=== PATIENT | female | born 1995 | race Caucasian/White ===

== ENCOUNTER 2022-11-10 10:16 | Outpatient (REF) | payer MEDICAID, OTHER, SELFPAY ==
[2022-11-10 14:18] LABS: MANUAL DIFF FLAG NO
[2022-11-10 14:35] LABS: Basophils Percent Auto 0.4 % (0-2); Eosinophils Absolute Auto 0.1 X10*3/uL (0.0-0.4); Hematocrit 39.7 % (37.0-47.0); Imm Gran Abs Auto 0.01 X10*3/uL (0.00-0.03); Imm Gran Pct Auto 0.1 % (0.0-0.4); Lymphocytes Absolute Auto 1.9 X10*3/uL (1.2-4.9); Lymphocytes Percent Auto 26.4 % (20-40); Mean Corpuscular HGB Conc 32.7 g/dl (31.0-35.0); Mean Corpuscular Volume 88.4 fL (80.0-98.0); Mean Platelet Volume 10.6 fL (9.4-12.3); Monocytes Absolute Auto 0.4 X10*3/uL (0.1-1.2); Monocytes Percent Auto 5.3 % (2-11); Neutrophils Absolute Auto 4.7 x10*3/uL (2.0-8.3); Neutrophils Percent Auto 66.8 % (45-73); Platelet Count 305 X10*3/uL (160-400); Red Blood Count 4.49 X10*6/uL (4.20-5.50); Red Cell Distribution Width 13.1 % (11.0-16.0)
[2022-11-10 14:40] LABS: Estimated Average Glucose 94 mg/dL; Hemoglobin A1c % 4.9 %
[2022-11-10 15:39] LABS: Alanine Aminotransferase 38 U/L (0-31); Alkaline Phosphatase 84 U/L (39-117); Anion Gap 11 (12-20); Aspartate Amino Transferase 24 U/L (5-31); Bilirubin Total 0.3 mg/dL (0.0-1.0); Blood Urea Nitrogen 10 mg/dL (9-16); Calcium 8.9 mg/dL (8.4-10.2); Carbon Dioxide 23 mmol/L (22-29); Chloride 110 mmol/L (96-108); Estimated Glomerular Filt Rate > 60; Glucose Fasting 88 mg/dL (60-99); Potassium 4.2 mmol/L (3.3-5.1); Sodium 140 mmol/L (135-145); Total Protein 7.7 g/dL (6.5-8.0)
[2022-11-10 15:42] LABS: TSH reflex Free T4 2.19 uIU/mL (0.32-4.0); Vitamin D 25-OH Total 10.5 ng/mL (>30)
[2022-11-10 15:46] LABS: Vitamin B12 275 pg/mL (200-900)
== END 2022-11-10 10:17 | disposition home or self-care (01) ==
LOC: HO.CHCLDS 10:16
PROVIDERS: Visit Provider General Practice
DX: R53.83 Other fatigue (principal)
CPT/HCPCS: 36415; 80053; 82306; 82607; 83036; 84443; 85025

== ENCOUNTER 2024-01-23 10:49 | Outpatient (REF) | payer MEDICAID, OTHER, SELFPAY ==
[2024-01-23 14:35] LABS: Vitamin D 25-OH Total 23.8 ng/mL (>30)
[2024-01-23 14:54] LABS: Folate 7.9 ng/mL (> or = 4.0); Vitamin B12 285 pg/mL (200-900)
[2024-01-24 21:53] LABS: Prolactin 12.4 ng/mL
== END 2024-01-23 10:50 | disposition home or self-care (01) ==
LOC: HO.HHCL 10:49
PROVIDERS: Visit Provider Nurse Practitioner
DX: R79.89 Other specified abnormal findings of blood chemistry (principal); E53.8 Deficiency of other specified B group vitamins; E55.9 Vitamin D deficiency, unspecified
CPT/HCPCS: 36415; 82306; 82607; 82746; 84146

== ENCOUNTER 2024-05-02 16:37 | Outpatient (REF) | payer MEDICAID, SELFPAY ==
--- OUTSIDE RECORDS SUMMARY | 2024-05-02 16:44 | XMS_ITS | Encounter Summary ---
Author Organization [employer] Address [address] [facility] 7t [place] [address] Care Team Providers Care Police Dispatcher Name Role Phone Sophie Borjas PATIENT RELATIONS LIAISON Primary Care Provider [phone] Reason for Visit * Reason Comments Med Refill Encounter Details Date Type Department Care Team ([facility] st Contact Info) Description 04/27/2024 Refill [facility] [address] [place] [address] Sophie Borjas NP [address] [place] [address] Social History Tobacco Use Types Packs/Day Years Used Date Smoking Tobacco: Never Passive Smoke Exposure: Never Smokeless Tobacco: Never Alcohol Use Standard Drinks/Week Comments Never 0 (1 standard drink = 0.6 oz pur e alcohol) Depression Answer Date Recorded Patient Health Questionnaire-9 Score 3 01/23/2024 Patient Health Questionnaire-9 Score 3 01/23/2024 Last PHQ-9: Questionnaire Data Not on file 1 Housing Stability Answer Date Recorded What is your housing situation today? I have ana rosa carmona 01/23/[address] you li ve. Do you have problems with any of the following? None of the above 01/23/2024 Food Insecurity Answer Date Recorded Within the past 12 months, y ou worried that your food would run out before you got money to buy more: Never True 01/23/2024 Within the past 12 months,th e food you bought just didn't last and you didn't have enough money to get more: Never True Transportation Answer Date Recorded In the past 12 months, has l ack of transportation kept you from medical appts, meetings, work or from getting things needed for daily living? No 01/23/2024 Utilities Answer Date Recorded In the past 12 months, has t he electric, gas, oil or water company threatened to shut off services in your home? No 01/23/2024 Depression Answer Date Recorded Patient Health Questionnaire-2 Score 1 01/23/2024 Internet Access Answer Date Recorded Internet Access Q1 Yes 01/23/2024 Internet Access Q2 Not on file 01/23/2024 Comments No Sex and Gender Information Value Date Recorded Sex Assigned at Female 01/25/2022 10:30 AM EDT Legal Sex Female 10:30 AM EDT Gender Identity Female 01/25/2022 10:30 AM EDT Sexual Orientation Straight 01/25/2022 10 :30 AM EDT documented as of this encounter Plan of Treatment Upcoming Encounters Date Type Department Care Team (Late st Contact Info) Description 05/22/2024 1:00 PM EST Office Visit [facility] [address] [place] [address] Gilles Pitts 07/18/2024 9:00 AM EDT Procedure Visit [facility] [address] [place] [address] Sophie Borjas NP [address] [place] [address] documented as of this encounter Visit Diagnoses Not on filedocumented in this encounter Additional Health Concerns Assessment Noted Time PHQ-9 Depression Total Score: 3 01/23/20 24 9:55 AM EDT documented as of this encounter Care Teams Police Dispatcher Relationship Specialty Start Date End Date Sophie Borjas NP [address] [place] [address] PCP - General Family Medicine 04/02/24 documented as of this encounter
--- OUTSIDE RECORDS SUMMARY | 2024-05-02 16:44 | XMS_ITS | Clinical Summary ---
Author Organization [employer] Address [address] [place] [address] 7t [place] [address] Care Team Providers Care Child Day Care Provider Name Role Phone Sophie Borjas CIRCLE BEVELER Primary Care Provider [phone] Allergies Active Allergy Reactions Criticality Noted Date Comments Ibuprofen Other,Vomiting Low 01/23/2024 Stomach pain Medications cyanocobalamin (Vitamin B-12) 1000 MCG/ML injection INJECT ONE ML INTRAMUSCULARLY EVERY MONTH 022 Active ergocalciferol (Vitamin D2) 1.25 MG (65143 UT) capsule TAKE ONE CAPSULE ONCE PER WEEK 15 capsule 023 Active pantoprazole (ProtoNix) 20 MG EC tabletIndicati ons:GERD without esophagitis TAKE ONE TABLET EVERY MORNING 30 tablet 3 024 Active metFORMIN (Glucophage) 500 MG tablet Take by mouth. A ctive cholecalcifero l (Vitamin D-3) 10 MCG (400 UNIT) capsuleIndicat ions:Hypovitam inosis D Take 2 capsules (20 mcg) by mouth Once per day. 60 capsule 2 024 2024 Active FT Acid Jewelry Engraver 10 MG tablet TAKE 1 TABLET BY MOUTH TWICE DAILY 180 tablet 025 Active famotidine (Pepcid) 10 MG tablet Take 1 tablet (10 mg) by mouth 2 times daily. 30 tablet 1 025 2024 Discontinued Active Problems Problem Noted Date Diagnosed Date PCOS (polycystic ovarian syndrome) 11/10/2022 Assessment & Plan (01/23/2024 12:07 PM EDT): -prolactin level ordered per patient request -will discuss further intervention pending lab result Cobalamin deficiency 04/16/2022 Assessment & Plan (01/23/2024 12:06 PM EDT): -asymptomatic at this time -normal B12 lab of 318 as of Mar 2022 -suspect deficiency is due to prolonged pantoprazole use. Discussed non-pharm measures for GERD management. Will change to famotidine if B12 deficiency noted on labs -repeat labs ordered today Gastroesophageal reflux disease without esophagi tis 04/16/2022 Vitamin D deficiency 04/16/2022 Assessment & Plan (01/23/2024 12:07 PM EDT): -repeat lab ordered to evaluate for supplement continuation at current dose of 5,000 UT of vitamin D2 Seasonal allergies 04/16/2022 Acne 04/16/2022 Encounters Date Type Department Care Team Description 05/02/2024 11:15 AM EST Office Visit [facility] [address] [place] [address] Shey Shook FNP Dysuria (Primary Dx) 05/01/[address] [address] Sophie Borjas NP Nurse Triage 04/27/2024 Refill [facility] [address] [place] [address] Sophie Borjas NP 04/04/2024 Orders Only [facility] [address] [place] [address] Sophie Borjas NP 04/02/[address] [address] Sophie Borjas NP Medication Question 02/21/2024 11:15 AM EST Office Visit [facility] [address] [place] [address] Sophie Borjas NP Hypovitaminosis D (Primary Dx); Sexual aversion 02/21/2024 Travel 02/15/2024 Telephone [facility] [address] [place] [address] Gurmeet Chinchilla [place] Chartprep from Last 3 Months Immunizations Name Administration Dates Next Due HPV 9-Valent 08/30/2018,04/22/2016 Influenza injectable quadriv alent IIV4 with preservative 03/18/2017 Influenza injectable quadrivalent preservative f ree 05/19/2020 Meningococcal MCV4P ACYW-135 04/22/2016 Tdap 03/17/2016 Family History Medical History Relation Name Comments Hypertension Father Liver disease Father Liver disease Paternal Grandfather Heart disease Paternal Grandmother Throat cancer Paternal Grandmother Relation Name Status Comments Father Paternal Grandfather Paternal Grandmother Social History Tobacco Use Types Packs/Day Years Used Date Smoking Tobacco: Never Passive Smoke Exposure: Never Smokeless Tobacco: Never Tobacco Cessation:Counseling Given: Not Answered Alcohol Use Standard Drinks/Week Comments Never 0 [...] t he electric, gas, oil or water [employer] threatened to shut off services in your [...] Orientation Straight 01/25/2022 10 :30 AM EDT Last Filed Vital Signs Vital Sign Reading Time Taken Comments Blood Pressure 118/70 05/02/2024 11:09 AM EST Pulse 70 05/02/2024 11:09 AM EST Temperature 36.5 ??C (97.7 ??F) 05/02/2024 11:[address] Respiratory Rate 16 05/02/2024 11:09 AM EST Oxygen Saturation 98% 02/21/2024 11:27 AM EST Inhaled Oxygen Concentration - - Weight 89.8 kg (198 lb) 05/02/2024 11:09 AM EST Height 162.6 cm (5' 4 ) 05/02/2024 11:09 AM EST Body Mass Index 33.99 05/02/2024 11:09 AM EST Plan of Treatment Upcoming Encounters Date Type Department Care Team (Late st Contact Info) Description 05/22/2024 1:00 PM EST Office Visit [facility] [address] [place] [address] Gilles Pitts 07/18/2024 9:00 AM EDT Procedure Visit [facility] [address] [place] [address] Sophie Borjas NP [address] [place], [place] [phone] Health Maintenance Due Date Last Done Comments Dental X-Ray: Full Mouth 1997 HIV Screening 1997 Alcohol/Substance Use Screening 2009 Family Planning (PISQ) 2012 Hepatitis B Vaccines (1 of 3 - 19+ 3-dose series) 2016 Pap Smear 2018 HPV Vaccines (3 - 3-dose series) 11/22/2018 08/30/2018, 04/22/2016 Dental Oral Exam 12/13/2022 06/11/2022 COVID-19 Vaccine (4 - 2023-2 5 season) 2023 04/19/2021, 08/21/2020, 07/31/2020 Influenza Vaccine (#1) 2023 , 03/18/2017 Dental Prophylaxis 05/20/2024 11/17/2023, 06/11/2022 Dental X-Ray: Bitewings 11/17/2024 11/17/19 24, 10/21/2022, 06/11/2022 Depression Screening 01/22/2025 01/23/2024, 01/23/2024 SDOH Screening 01/22/2025 01/23/2024 Tobacco Screening 05/02/2025 05/02/2024 DTaP/Tdap/Td Vaccines (2 - T d or Tdap) 03/17/2026 03/17/2016 Zoster Vaccines (1 of 2) 07/04/2047 RSV Patients and Patients Aged 60 years or older (1 - 1-dose 75+ series) 2072 Meningococcal Vaccine Completed 04/22/2016 Hepatitis C Screening Completed 06/08/2021 HIB Vaccines Aged Out No longer eligi ble based on patient's age to complete this topic Hepatitis A Vaccines Aged Out No long er eligible based on patient's age to complete this topic IPV Vaccines Aged Out No longer eligi ble based on patient's age to complete this topic Pneumococcal Vaccine: Pediatrics (0 to 5 Years) and At-Risk Patients (6 to 49) Years) Aged Out No longer eligible b ased on patient's age to complete this topic RSV under 20 months Aged Out No longe r eligible based on patient's age to complete this topic Rotavirus Vaccines Aged Out No longer eligible based on patient's age to complete this topic Procedures Procedure Name Priority Date/Time Associated Diagnosis Comments POCT , URINE Routine 05/02/2024 12:16 PM EST Dysuria Full PROPHYLAXIS - ADULT Routine 11/17/2023 10:00 AM EDT BITEWINGS - 4 RADIOGRAPHIC IMAGES Routine 11/17/2023 10:00 AM EDT PERIODIC ORAL EVALUATION - ESTABLISHED PATIENT Routine 06/11/2022 9:00 AM EDT ZZZ HISTORICAL HEPATITIS C AB W/REFL TO HCV RNA, QN, PCR Routine 06/08/2021 11:18 AM EDT from Last 3 Months or Most Recently Relevant to Health Maintenance Results * POCT Urine (05/02/2024 12:16 PM EST) Preg Test, Ur Negative Negative, Indeterminate, None Detected, Invalid, Specimen unsatisfactory for evaluation, Weakly Positive QC Media Lot # [id number] Lot# Expiration Date [id number] Urine 05/02/2024 12:1 6 PM EST Shey Shook MEAT COUNTER CLERK POINT OF CARE TEST ENTER/EDIT ORDERABLES Final Result * HEPATITIS C AB W/REFL TO HCV RNA, QN, PCR (06/08/2021 11:18 AM EDT) HEPATITIS C ANTIBODY NON-REACT BRONWYN NON-REACT BRONWYN [facility] INDEX 0.01 <1.00 [facility] Comment: ?? HCV antibody was non-reactive. There is no laboratory ?? evidence of HCV infection. ?? In most cases, no further action is required. However, if recent HCV exposure is suspected, a test for HCV RNA (test code 07467) is suggested. ?? For additional information please refer to http://education.trinket/faq/LKS43p5 (This link is being provided for informational/ educational purposes only.) ?? 06/08/2021 11:1 8 AM EDT us Rabia Agarwal MD HISTORICAL/NON ORDERABLE LABS Fi nal Result [facility] [address] from Last 3 Months or Most Recently Relevant to Health Maintenance Insurance [facility] ST[facility] ADULT Care Teams Child Day Care Provider Relationship Specialty Start Date End Date Sophie Borjas NP [address] [place] [phone] PCP - General Family Medicine 04/02/24
--- OUTSIDE RECORDS SUMMARY | 2024-05-02 16:44 | XMS_ITS | Encounter Summary ---
Author Organization [employer] Address [address] [facility] 7t [place] [address] Care Team Providers Care Chemical Process Operator Name Role Phone Sophie Borjas SLOT OPERATIONS MANAGER Primary Care Provider [phone] Encounter Details Date Type Department Care Team (Late st Contact Info) Description 05/02/2024 11:15 AM EST Office Visit [facility] [address] [place], [place] [phone] Shey Shook FNP [address] [place], [place] [phone] Dysuria (Primary Dx) Social History Tobacco Use Types Packs/Day Years [...] AM EDT documented as of this encounter Last Filed Vital Signs Vital Sign Reading Time Taken Comments Blood Pressure 118/70 05/02/2024 11:09 AM EST Pulse 70 05/02/2024 11:09 AM EST Temperature 36.5 ??C (97.7 ??F) 05/02/2024 11:[address] Respiratory Rate 16 05/02/2024 11:09 AM EST Oxygen Saturation - - Inhaled Oxygen Concentration - - Weight 89.8 kg (198 lb) 05/02/2024 11:09 AM EST Height 162.6 cm (5' 4 ) 05/02/2024 11:09 AM EST Body Mass Index 33.99 05/02/2024 11:09 AM EST documented in this encounter Plan of Treatment Upcoming Encounters Date Type Department Care Team (Late st Contact Info) Description 05/22/2024 1:00 PM EST Office Visit [facility] ADULT DENT[facility] [address] [place] [address] Gilles Pitts 07/18/2024 9:00 AM EDT Procedure Visit [facility] [address] [place] [address] Sophie Borjas NP [address] [place] [address] Scheduled Orders Name Type Priority Associated Diagnoses Orde r Schedule Bacterial Vaginosis Panel Microbiology Routine Dysuria Ordered: 05/02/2024 Urine Culture Routine Microbiology Routine Dysuria Ordered: 05/02/2024 Chlamydia/N. Gonorrhoeae RNA, TMA, Urogenitial Microbiology Routine Dysuria Ordered: 05/02/2024 documented as of this encounter Procedures Procedure Name Priority Date/Time Associated Diagnosis Comments POCT , URINE Routine 05/02/2024 12:16 PM EST Dysuria documented in this encounter Results * POCT Urine (05/02/2024 12:16 PM EST) Preg Test, Ur Negative Negative, Indeterminate, None Detected, Invalid, Specimen unsatisfactory for evaluation, Weakly Positive QC Media Lot # [id number] Lot# Expiration Date [id number] Urine 05/02/2024 12:1 6 PM EST Shey Shook METAL RIVETER POINT OF CARE TEST ENTER/EDIT ORDERABLES Final Result documented in this encounter Visit Diagnoses Diagnosis Dysuria- Primary documented in this encounter Additional Health Concerns Assessment Noted Time PHQ-9 Depression Total Score: 3 01/23/20 24 9:55 AM EDT documented as of this encounter Care Teams Chemical Process Operator Relationship Specialty Start Date End Date Sophie Borjas NP [address] [place] [address] PCP - General Family Medicine 04/02/24 documented as of this encounter
--- OUTSIDE RECORDS SUMMARY | 2024-05-02 16:44 | XMS_ITS | Encounter Summary ---
Author Organization [employer] Address [address] [place] [address] 7t [place] [address] Care Team Providers Care Taxi Cab Driver Name Role Phone Rabia Agarwal MD Primary Care Provider [phone] Sophie Borjas NP Primary Care Provider [phone] Encounter Details Date Type Department Care Team (Latest Contact Info) Description 01/29/2021 Abstract [facility] CONVERSIONS Dental, Provider, DDS Social History Tobacco Use Types Packs/Day Years Used Date Smoking Tobacco: Never Assessed Comments Unknown Sex and Gender Information Value Date Recorded Sex Assigned at Female 01/25/2022 10:30 AM EDT Legal Sex Female 10:30 AM EDT Gender Identity Female 01/25/2022 10:30 AM EDT Sexual Orientation Straight 01/25/2022 10 :30 AM EDT documented as of this encounter Plan of Treatment Upcoming Encounters Date Type Department Care Team (Late st Contact Info) Description 05/22/2024 1:00 PM EST Office Visit [facility] ADULT DENTAL [address] [place] [address] Gilles Pitts 07/18/2024 9:00 AM EDT Procedure Visit [facility] [address] [place] [address] Sophie Borjas NP [address] [place] [address] documented as of this encounter Visit Diagnoses Not on filedocumented in this encounter Care Teams Taxi Cab Driver Relationship Specialty Start Date End Date Rabia Agarwal MD [address] [place] [address] PCP - General Family Medicine 08/27/19 04/01/24 Sophie Borjas NP [address] [place] [address] PCP - General Family Medicine 04/02/24 documented as of this encounter
--- OUTSIDE RECORDS SUMMARY | 2024-05-02 16:44 | XMS_ITS | Encounter Summary ---
Author Organization [employer] Address [address] [facility] 7t [place] [address] Care Team Providers Care Chairman Emeritus Name Role Phone Sophie Borjas SPRING INSPECTOR Primary Care Provider [phone] Reason for Visit * Reason Onset Date Comments Medication Question 04/02/2024 Encounter Details Date Type Department Care Team ([facility] Contact Info) Description 04/02/[address] [facility] [address] [place], [place] [phone] Sophie Borjas NP [address] [place] [address] Medication Question Social History Tobacco Use Types Packs/Day Years [...] AM EDT documented as of this encounter Miscellaneous Notes * Telephone Encounter - Ernestina Corona RN - 04/04/2024 9:35 AM EST Tc to pt to let them know per PCP Please call patient and inform her that I have sent a prescription to the pharmacy for famotidine to be taken two times daily. She should continue to pantoprazole daily, just add famotidine and assess for improvement. May schedule a follow-up if symptoms are worsening despite lifestyle modification and meds. Pt verbalized understanding and no further questionsor concerns at this time. * Telephone Encounter - Sophie Borjas NP - 04/04/2024 9:03 AM EST Please call patient and inform her that I have sent a prescription to the pharmacy for famotidine to be taken two times daily. She should continue to pantoprazole daily, just add famotidine and assess for improvement. May schedule a follow-up if symptoms are worsening despite lifestyle modificationand meds. * Telephone Encounter - Ernestina Corona RN - 04/03/2024 4:26 PM EST Tc to pt in regards to requesting for an alternative medication to their Pantoprazole. Pt reports the Pantoprazole has not been effective for them and requesting a script for Omeprazole instead. PT reports they still have their refills left due to the fact pt had stopped taking their Pantoprazole because they did lifestyle modification that improved their heartburn. Pt then noticed about a week ago that their heart burn had worsened and no signs of improvement when taking their Pantoprazole. Ptreports they avoid eating spicy and fried processed foods. Pt reports they drink soda once a day. Pt advised to limit soda intake and make sure they're sitting up for two hours after eating. Informedpt we'll send message to PCP in regards to this request and call back for further updates. Pt verbalized understanding and message forwarded to PCP. * Telephone Encounter - Lizzy Price - 04/02/2024 3:23 PM EST Tc from pt requesting alternative medication for pantoprazole (ProtoNix) 20 MG EC tablet. Pt is requesting a script for omeprazole (PriLOSEC). Pt stated she had this medication in the past. Contact pt at [phone] documented in this encounter Plan of Treatment Upcoming Encounters Date Type Department Care Team (Late st Contact Info) Description 05/22/2024 1:00 PM EST Office Visit [facility] ADULT DENTAL [address] [place] [address] Gilles Pitts 07/18/2024 9:00 AM EDT Procedure Visit [facility] [address] [place] [address] Sophie Borjas NP [address] [place] [address] documented as of this encounter Visit Diagnoses Not on filedocumented in this encounter Additional Health Concerns Assessment Noted Time PHQ-9 Depression Total Score: 3 01/23/20 24 9:55 AM EDT documented as of this encounter Care Teams Chairman Emeritus Relationship Specialty Start Date End Date Sophie Borjas NP [address] [place] [address] PCP - General Family Medicine 04/02/24 documented as of this encounter
--- OUTSIDE RECORDS SUMMARY | 2024-05-02 16:44 | XMS_ITS | Encounter Summary ---
Author Organization [employer] Address [address] [place] [address] 7t [place] [address] Care Team Providers Care Supervisor Finish End Name Role Phone Sophie Borjas WET PROCESS ASSISTANT HEAD MILLER Primary Care Provider [phone] Reason for Visit * Reason Onset Date Comments Nurse Triage 05/01/2024 Encounter Details Date Type Department Care Team ([facility] st Contact Info) Description 05/01/2024 Telephone [facility] [address] [place], [place] [phone] Sophie Borjas NP [address] [place] [address] Nurse Triage Social History Tobacco Use Types Packs/Day Years [...] encounter Miscellaneous Notes * Telephone Encounter - Reece Sarah - 05/01/2024 11:08 AM EST Pt returning call. * Telephone Encounter - Ayse Barrow RN - 05/01/2024 10:53 AM EST called pt to triage spoke to pt. pt states 2 days duration of urinary frequency, urgency, burning, and dark color. pt denies fevers, blood, back pain, or other associated symptoms. advised home care:rest, fluids, and call back as needed. given appt tomorrow with blue team provider at 11:15 for exam. pt understands and agrees with plan. insurance verified. Protocol Used: Urinary Symptoms (Adult) Protocol-Based Disposition: See in Office or Video Visit Today or Tomorrow Video visit offer not recorded Positive Triage Question: * Patient wants to be seen * All higher-acuity triage questions were negative Care Advice Discussed: * Reasons To Call Back - Fever occurs - Pain or burning with urination - Unable to urinate and bladder feels full - You become worse * Telephone Encounter - Moncho Vasquez - 05/01/2024 10:15 AM EST Symptom: Urination Pain Outcome: Schedule a same-day appointment or talk to a nurse or provider today Reason: Caller denied all higher acuity questions The caller accepted this outcome. Contact pt at [phone] documented in this encounter Plan of Treatment Upcoming Encounters Date Type Department Care Team (Late st Contact Info) Description 05/22/2024 1:00 PM EST Office Visit [facility] ADULT DENTAL [address] [place] [address] Gilles Pitts 07/18/2024 9:00 AM EDT Procedure Visit [facility] [address] [place] [address] Sophie Borjas NP [address] [place] [address] documented as of this encounter Visit Diagnoses Not on filedocumented in this encounter Additional Health Concerns Assessment Noted Time PHQ-9 Depression Total Score: 3 01/23/20 24 9:55 AM EDT documented as of this encounter Care Teams Supervisor Finish End Relationship Specialty Start Date End Date Sophie Borjas NP [address] [place] [address] PCP - General Family Medicine 04/02/24 documented as of this encounter
--- OUTSIDE RECORDS SUMMARY | 2024-05-02 16:45 | XMS_ITS | Clinical Summary ---
Author Organization [facility] ity Address [address] [place] [address] Care Team Providers Care Billing Administrator Name Role Phone Jonny Musa MD Primary Care Provider Surgical History Surgery Date Site/Laterality Comments OTHER SURGICAL HISTORY PROCEDURE: DENIES PREVIOUS SURGERY Medical History Medical History Date Comments Acne 02/10/2016 DX:Acne Family History Medical History Relation Name Comments Diabetes Father Relation Name Status Comments Father Social History Tobacco Use Types Packs/Day Years Used Date Smoking Tobacco: Never Alcohol Use Standard Drinks/Week Comments No 0 (1 standard drink = 0.6 oz pur e alcohol) Sex and Gender Information Value Date Recorded Sex Assigned at Not on file Gender Identity Not on file Sexual Orientation Not on file Obstetrics History Plan of Treatment Health Maintenance Due Date Last Done Comments HPV Vaccines (1 - 3-dose series) 2012 Hepatitis B Vaccines (1 of 3 - 19+ 3-dose series) 2016 Cervical Cancer Screening: P ap Smear 2018 COVID-19 Vaccine ( - 2023-2 5 season) 2023 Influenza Vaccine (#1) 2023 DTaP,Tdap,and Td Vaccines (2 - Td or Tdap) 03/17/2026 03/17/2016 HIB Vaccines Aged Out No longer eligi ble based on patient's age to complete this topic Hepatitis A Vaccines Aged Out No long er eligible based on patient's age to complete this topic IPV Vaccines Aged Out No longer eligi ble based on patient's age to complete this topic MMR Vaccines Aged Out No longer eligi ble based on patient's age to complete this topic Meningococcal ACWY Vaccine Aged Out N o longer eligible based on patient's age to complete this topic Pneumococcal Vaccine: Pediat rics (0 to 5 Years) and At-Risk Patients (6 to 64 Years) Aged Out No longer eligi ble based on patient's age to complete this topic RSV Immunization Patients Un john 20 months Aged Out No longer eligible b ased on patient's age to complete this topic Varicella Vaccines Aged Out No longer eligible based on patient's age to complete this topic Care Teams Billing Administrator Relationship Specialty Start Date End Date Jonny Musa MD [address] [place] [address] Dr Yvonne [place] PCP - General Internal Medicine 11/10/18
--- OUTSIDE RECORDS SUMMARY | 2024-05-02 16:45 | XMS_ITS | Encounter Summary ---
Author Organization [employer] Address [address] [place] [address] 7t [place] [address] Care Team Providers Care Computational Scientist Name Role Phone Rabia Agarwal MD Primary Care Provider [phone] Sopihe Borjas NP Primary Care Provider [phone] Reason for Visit * Reason Onset Date Comments Appointment 05/28/2022 Jennifer Davila 1995 Patient called in and stated that a antibiotic was supposed to be sent over to the [facility] pharmacy and patient stated that nothing has be sent over yet patient was seen today 05/28 please advise . Encounter Details Date Type Department Care Team (Late st Contact Info) Description 05/28/2022 Telephone [facility] [address] [place] [address] Ramiro Phoenix DDS [address] [place] [address] Appointment (Jennifer Davila 1995 Patient called in and stated that a antibiotic was supposed to be sent over to the [facility] pharmacy and patient stated that nothing has be sent over yet patient was seen today 05/28 please advise .) Social History Tobacco Use Types Packs/Day Years Used Date Smoking Tobacco: Never Smokeless Tobacco: Never Depression Answer Date Recorded Patient Health Questionnaire-9 Score 0 04/16/2022 Depression Answer Date Recorded Patient Health Questionnaire-2 Score 0 04/16/2022 Comments Unknown Sex and Gender Information Value Date Recorded Sex Assigned at Female 01/25/2022 10:30 AM EDT Legal Sex Female 10:30 AM EDT Gender Identity Female 01/25/2022 10:30 AM EDT Sexual Orientation Straight 01/25/2022 10 :30 AM EDT COVID-19 Exposure Response Date Recorded In the last 10 days, have saqib u been in contact with someone who was confirmed or suspected to have Coronavirus/COVID-19? No / Unsure 05/28/2022 11:23 AM EST documented as of this encounter Miscellaneous Notes * Telephone Encounter - Radha Davis - 05/28/2022 3:09 PM EST Jennifer NEWTNO 1995 Patient called in and stated that a antibiotic was supposed to be sent over to the [facility] pharmacy and patient stated that nothing has be sent over yet patient was seen today05/28 please advise .AV documented in this encounter Plan of Treatment Upcoming Encounters Date Type Department Care Team (Late st Contact Info) Description 05/22/2024 1:00 PM EST Office Visit [facility] [address] [place] [address] Gilles Pitts 07/18/2024 9:00 AM EDT Procedure Visit [facility] [address] [place] [address] Sophie Borjas NP [address] [place] [address] documented as of this encounter Visit Diagnoses Not on filedocumented in this encounter Additional Health Concerns Assessment Noted Time PHQ-9 Depression Total Score: 0 04/16/19 23 11:48 AM EST documented as of this encounter Care Teams Computational Scientist Relationship Specialty Start Date End Date Rabia Agarwal MD [address] [place] [phone] PCP - General Family Medicine 08/27/19 04/01/24 Sophie Borjas NP [address] [place] [address] PCP - General Family Medicine 04/02/24 documented as of this encounter
--- OUTSIDE RECORDS SUMMARY | 2024-05-02 16:45 | XMS_ITS | Encounter Summary ---
Author Organization [employer] Address [address] [facility] 7t [place] [address] Care Team Providers Care Dealer Relationship Manager Name Role Phone Sophie Borjas HOGSHEAD COOPER Primary Care Provider [phone] Encounter Details Date Type Department Care Team (Late st Contact Info) Description 04/04/2024 Orders Only [facility] MED[facility]INE [address] [place] [address] Sophie Borjas NP [address] [place] [address] Social History Tobacco Use Types Packs/Day Years [...] Description 05/22/2024 1:00 PM EST Office Visit [facility] ADULT DENTAL [address] [place] [address] Gilles Pitts 07/18/2024 9:00 AM EDT Procedure Visit [facility] [address] [place] [address] Sophie Borjas NP [address] [place] [address] documented as of this encounter Visit Diagnoses Not on filedocumented in this encounter Additional Health Concerns Assessment Noted Time PHQ-9 Depression Total Score: 3 01/23/20 24 9:55 AM EDT documented as of this encounter Care Teams Dealer Relationship Manager Relationship Specialty Start Date End Date Sophie Borjas NP [address] [place] [address] PCP - General Family Medicine 04/02/24 documented as of this encounter
[2024-05-03 04:52] LABS: CT PCR NOT DETECTED (Not Detect.); NG PCR NOT DETECTED (Not Detect.)
[2024-05-03 12:35] LABS: Bacterial Vaginosis PCR NEGATIVE (Negative); Candida Group PCR NOT DETECTED (Not Detect); Candida glab krusei PCR NOT DETECTED (Not Detect); Trichomonas vaginalis PCR NOT DETECTED (Not Detect)
== END 2024-05-02 16:38 | disposition home or self-care (01) ==
LOC: HO.HHCLNP 16:37
PROVIDERS: Visit Provider Nurse Practitioner Family
DX: R30.0 Dysuria (principal)
CPT/HCPCS: 81515; 87086; 87491; 87591

== ENCOUNTER 2024-07-17 07:55 | Outpatient (REF) | payer MEDICAID, SELFPAY ==
--- NOTE | ~2024-07-17 | US_ITS ---
EXAMINATION: US DIAGNOSTIC ULTRASOUND BREAST, BILATERAL CLINICAL INFORMATION: 29-year-old female with bilateral lower breast and nipple pain for 2 months, no injury. Patient states she does not currently have the pain. COMPARISON: Comparison is made with relevant prior imaging. TECHNIQUE: Ultrasound of the breast is performed with real-time rousseau scale imaging and color Doppler. FINDINGS: Targeted color Doppler ultrasound scanning from 3-9 o'clock bilateral breasts and retroareolar demonstrates normal fibroglandular breast tissue. There is no focal suspicious finding. Results are discussed with the patient at time of visit. US/US breast BI limited mamm only IMPRESSION: No sonographic abnormality to account for the patient's breast and nipple pain. Recommend clinical evaluation and follow-up. ASSESSMENT: BI-RADS 1: Negative RECOMMENDATION: 1. Patient should be managed based on the clinical impression. Decision to proceed with biopsy should be based on clinical grounds and degree of clinical concern. 2. Otherwise, routine annual screening mammography age 40. Electronically signed by: Lety Gross DO 07/17/2024 08:53 AM EDT
--- OUTSIDE RECORDS SUMMARY | 2024-07-17 08:00 | XMS_ITS | Clinical Summary ---
Author Organization [facility] Address [address] [place] [address] Care Team Providers Care Earth Science Teacher Name Role Phone Jonny Musa MD Primary Care Provider [phone] Surgical History Surgery Date Site/Laterality Comments OTHER [...] drink = 0.6 oz pur e alcohol) Comments Unknown Sex and Gender Information Value Date Recorded Sex Assigned at Not on file Legal Sex Female 9:46 PM EST Gender Identity Not on file Sexual Orientation Not on file Obstetrics History Plan of Treatment Health Maintenance Due Date Last Done Comments Hepatitis B Vaccines (1 of 3 - 19+ 3-dose series) 2016 Cervical Cancer Screening: P ap Smear 2018 COVID-19 Vaccine (2023-2 5 season) 2023 Influenza Vaccine (Season Ended) 2024 DTaP,Tdap,and Td Vaccines (2 - Td or Tdap) 03/17/2026 03/17/2016 HIB Vaccines Aged Out No longer eligi ble based on patient's age to complete this topic HPV Vaccines Aged Out No longer eligi ble [...] patient's age to complete this topic Meningococcal B Vaccine Aged Out No l onger eligible based on patient's age to complete [...] age to complete this topic Care Teams Earth Science Teacher Relationship Specialty Start Date End Date Jonny Musa MD [address] [place] [address] Dr Russell [place] PCP - General Internal Medicine 11/10/18
--- OUTSIDE RECORDS SUMMARY | 2024-07-17 08:00 | XMS_ITS | Encounter Summary ---
Author Organization [employer] Address [address] [place] [address] 7t [place] [address] Care Team Providers Care Fruit Grading Supervisor Name Role Phone Rabia Agarwal MD Primary Care Provider [phone] Sophie Borjas NP Primary Care Provider [phone] Encounter Details Date Type Department Care Team (Latest Contact Info) Description 01/29/2021 Abstract [facility] CONVERSIONS Dental, Provider, DDS Social History Tobacco [...] Upcoming Encounters Date Type Department Care Team ( st Contact Info) Description 07/18/2024 9:00 AM EDT Procedure Visit [facility] MEDICINE [address] [place] [address] Sophie Borjas NP [address] [place] [address] 07/19/2024 3:00 PM EDT Office Visit [facility] ADULT DENTAL [address] [place] [address] Janet Hayward DDS [address] [place] [address] documented as of this encounter Visit Diagnoses Not on filedocumented in this encounter Care Teams Fruit Grading Supervisor Relationship Specialty Start Date End Date Rabia Agarwal MD [address] [place] [address] PCP - General Family Medicine 08/27/19 04/01/24 Sophie Borjas NP [address] [place] [address] PCP - General Family Medicine 04/02/24 documented as of this encounter
--- OUTSIDE RECORDS SUMMARY | 2024-07-17 08:00 | XMS_ITS | Encounter Summary ---
Author Organization [employer] Address [address] [place] [address] 7t [place] [address] Care Team Providers Care Put In Beat Adjuster Name Role Phone Rabia Agarwal MD Primary Care Provider [phone] Sophie Borjas NP Primary Care Provider [phone] Reason for Visit * Reason Onset Date Comments Appointment 05/28/2022 Jennifer Davila 1995 Patient called in and stated that a antibiotic was supposed to be sent over to the [facility] pharmacy and patient stated that nothing has be sent over yet patient was seen today 05/28 please advise . Encounter Details Date Type Department Care Team (Late st Contact Info) Description 05/28/2022 Telephone [facility] ADULT DENTAL [address] [place] [address] Ramiro Phoenix DDS [address] [place] [address] Appointment (Jennifer Davila 1995 Patient called in and stated that a antibiotic was supposed to be sent over to the [facility] pharmacy and patient stated that nothing has [...] Davis - 05/28/2022 3:09 PM EST Jennifer Davila 1995 Patient called in and stated that a antibiotic was supposed to be sent over to the [facility] pharmacy and patient stated that nothing has be sent over yet patient was seen today05/28 please advise .AV documented in this encounter Plan of Treatment Upcoming Encounters Date Type Department Care Team (Late st Contact Info) Description 07/18/2024 9:00 AM EDT Procedure Visit [facility] MEDICINE [address] [place] [address] Sophie Borjas NP [address] [place] [address] 07/19/2024 3:00 PM EDT Office Visit [facility] ADULT DENTAL [address] [place] [address] Janet Hayward DDS [address] [place] [address] documented as of this encounter Visit Diagnoses Not on filedocumented in this encounter Additional Health Concerns Assessment Noted Time PHQ-9 Depression Total Score: 0 04/16/19 11:48 AM EST documented as of this encounter Care Teams Put In Beat Adjuster Relationship Specialty Start Date End Date Rabia Agarwal MD [address] [place] [address] PCP - General Family Medicine 08/27/19 04/01/24 Sophie Borjas NP [address] [place] [address] PCP - General Family Medicine 04/02/24 documented as of this encounter
--- OUTSIDE RECORDS SUMMARY | 2024-07-17 08:00 | XMS_ITS | Clinical Summary ---
Author Organization [employer] Address [address] [place] [address] 7t [place] [address] Care Team Providers Care Hr Leader Name Role Phone Sophie Borjas DUST COLLECTOR TREATER Primary Care Provider [phone] Allergies Active Allergy Reactions Criticality Noted Date Comments Ibuprofen Other,Vomiting Low 01/23/2024 Stomach pain Medications cyanocobalamin (Vitamin B-12) 1000 MCG/ML injection INJECT ONE ML INTRAMUSCULARLY EVERY MONTH 08/18/19 22 Active ergocalciferol (Vitamin D2) 1.25 MG (09571 UT) capsule TAKE ONE CAPSULE ONCE PER WEEK 15 capsule 02/16/20 23 Active pantoprazole (ProtoNix) 20 MG EC tabletIndicatio ns:GERD without esophagitis TAKE ONE TABLET EVERY MORNING 30 tablet 3 06/06/19 24 Active metFORMIN (Glucophage) 500 MG tablet Take by mouth. A ctive FT Acid Underground Utility Locator 10 MG tablet TAKE 1 TABLET BY MOUTH TWICE DAILY 180 tablet 04/27/19 25 Active cholecalciferol (Vitamin D-3) 10 MCG (400 UNIT) tabletIndicatio ns:Hypovitamino sis D TAKE 2 TABLETS BY MOUTH EVERY DAY 60 tablet 2 05/15/19 25 Active celecoxib (CeleBREX) 200 MG capsule Take 1 capsule (200 mg) by mouth 2 times daily for 20 days. 40 capsule 06/13/19 25 025 Active Problems Problem Noted Date Diagnosed Date [...] Encounters Date Type Department Care Team Description 07/09/2024 Telephone [facility] [address] [place] [address] Sophie Borjas NP 07/09/2024 Telephone [facility] [address] [place] [address] Sophie Borjas NP chart prep 06/22/2024 Telephone [facility] [address] [place] [address] Ingris Mcmullen [facility] 06/12/2024 9:00 AM EDT Office Visit [facility] WALK[facility]IN CENTER [address] [place] [phone] Name, MD Prosper Pain of both breasts (Primary Dx) 06/12/2024 Travel 06/08/2024 Population Health Risk Score [facility] Department [address] [phone] Provider, Population Health Generic 05/22/2024 1:00 PM EST Office Visit [facility] ADULT DENTAL [address] [place] [address] Gilles Pitts Dental calculus (Primary Dx) 05/14/2024 Refill [facility] MEDICINE [address] [place] [address] Sophie Borjas NP Hypovitaminosis D 05/02/2024 11:15 AM EST Office Visit [facility] MEDICINE [address] [place] [address] ReynaldomatthewJeffryShey, IC DESIGN ENGINEER Dysuria (Primary Dx) 05/01/2024 Telephone [facility] MED[facility] [address] [facility] [place] [address] Sophie Borjas NP Nurse Triage 04/27/2024 Refill [facility] MED[facility] [address] [facility] [place] [address] Sophie Borjas NP from Last 3 Months Immunizations Name Administration [...] Sign Reading Time Taken Comments Blood Pressure 135/80 06/12/2024 9:06 AM EDT Pulse 76 06/12/2024 9:06 AM EDT Temperature 36.7 ??C (98 ??F) 06/12/2024 9:06 AM EDT Respiratory Rate 16 06/12/2024 9:06 AM EDT Oxygen Saturation 98% 06/12/2024 9:06 AM EDT Inhaled Oxygen Concentration - - Weight 93 kg (205 lb) 06/12/2024 9:06 AM EDT Height 162.6 cm (5' 4 ) 05/02/2024 11:09 AM EST Body Mass Index 35.19 05/02/2024 11:09 AM EST Plan of Treatment Upcoming Encounters Date Type Department Care Team (Late st Contact Info) Description 07/18/2024 9:00 AM EDT Procedure Visit [facility] MEDICINE [address] [place] [address] Sophie Borjas NP [address] [place] [address] 07/19/2024 3:00 PM EDT Office Visit [facility] ADULT DENTAL [address] [place] [address] Janet Hayward DDS [address] [place] [address] Health Maintenance Due Date Last Done Comments [...] Influenza Vaccine (#1) 2023 , 03/18/2017 Dental X-Ray: Bitewings 11/17/2024 11/17/19 24, 10/21/2022, 06/11/2022 Dental Prophylaxis 11/20/2024 05/22/2024, 11/17/2023, 06/11/2022 Depression Screening 01/22/2025 01/23/2024, 01/23/2024 SDOH Screening 01/22/2025 01/23/2024 Tobacco Screening 05/22/2025 05/22/2024 DTaP/Tdap/Td Vaccines (2 - T d or [...] Associated Diagnosis Comments POCT , URINE Routine 06/12/2024 9:31 AM EDT Pain of both breasts CASE PRESENTATION, DETAILED AND EXTENSIVE TREATMENT PLANNING Routine 05/22/2024 1:00 PM EST ORAL HYGIENE INSTRUCTIONS Routine 05/22/2024 1:00 PM EST Full PROPHYLAXIS - ADULT Routine 05/22/2024 1:00 PM EST POCT , URINE Routine 05/02/2024 12:16 PM EST Dysuria CHLAMYDIA/N. GONORRHOEAE RNA, TMA, UROGENITAL Routine 05/02/2024 12:00 AM EST Dysuria CULTURE, URINE, ROUTINE Routine 05/02/2024 12:00 AM EST Dysuria BACTERIAL VAGINOSIS PANEL Routine 05/02/2024 12:00 AM EST Dysuria BITEWINGS - 4 RADIOGRAPHIC IMAGES Routine 11/17/2023 10:00 AM EDT PERIODIC ORAL EVALUATION - ESTABLISHED PATIENT Routine 06/11/2022 9:00 AM EDT ZZZ HISTORICAL HEPATITIS C AB W/REFL TO HCV RNA, QN, PCR Routine 06/08/2021 11:18 AM EDT from Last 3 Months or Most Recently Relevant to Health Maintenance Results * POCT , urine manually resulted (06/12/2024 9:31 AM EDT) Only the most recent of2 resultswithin the time period is included. Preg Test, Ur Negative Negative, Indeterminate, None Detected, Invalid, Specimen unsatisfactory for evaluation, Weakly Positive Urine 06/12/2024 9:31 AM EDT us Prosper Name POINT OF CARE TEST ENTER/EDIT OR DERABLES Final Result * Bacterial Vaginosis Panel (05/02/2024 12:00 AM EST) TRICHOMONAS VAGINALIS DETECTION BY PCR NOT DETECTED Not Detect [facility] BACTERIAL VAGINOSIS DETECTION BY PCR NEGATIVE Negative [facility] Comment:The BV organism targ ets of the Xpert Xpress MVP test can becommensal in women; Xpert Xpress MVP positive results forbacterial vaginosis should be considered in conjunction withother clinical and patient information to determine thedisease status. Organisms that are not detected by the XpertXpress MVP test have also been reported to be associatedwith BV and aerobic vaginitis.The Xpert Xpress MVP test performance has not been evaluatedin patients under the age of 14. AYESHA GROUP DETECTION BY PCR NOT DETECTED Not Detect [facility] Ayesha glab krusei PCR NOT DETECTED Not Detect [facility] Swab Vaginal structure / Unknown 05/02/2024 05/02/2024 Shey Shook [facility] LAB MICROBIOLOGY - GENERAL ORD ERABLES Final Result [facility] [address] [place] [phone] * Chlamydia/N. Gonorrhoeae RNA, TMA, Urogenitial (05/02/2024 12:00 AM EST) CT PCR NOT DETECTED Not Detect. [facility] Comment:A not detected test result does not exclude the possibilityof infection because test results can be affected byimproper specimen collection, concurrent antibiotic therapy,or the number of organisms in the specimen which may bebelow the sensitivity of the test. As with many diagnostictests, results from the Xpert CT/NG assay should beinterpreted in conjunction with other laboratory andclinical data available to the clinician.Xpert CT/NG performance has not been evaluated in patientsless than 14 years of age. The assay should not be used forthe evaluationof suspected sexual abuse or for other medico-legalindications. Additional testing is recommended in anycircumstance when false positive or false negative resultscould lead to adverse medical, social or psychologicalconsequences. NG PCR NOT DETECTED Not Detect. [facility] Comment:A not detected test result does not exclude the possibilityof infection because test results can be affected byimproper specimen collection, concurrent antibiotic therapy,or the number of organisms in the specimen which may bebelow the sensitivity of the test. As with many diagnostictests, results from the Xpert CT/NG assay should beinterpreted in conjunction with other laboratory andclinical data available to the clinician.Xpert CT/NG performance has not been evaluated in patientsless than 14 years of age. The assay should not be used forthe evaluationof suspected sexual abuse or for other medico-legalindications. Additional testing is recommended in anycircumstance when false positive or false negative resultscould lead to adverse medical, social or psychologicalconsequences. Swab (Vaginal Swab) 05/02/2024 05/02/2024 [facility] - 05/03/2024 4:53 AM EST [facility] MICROBIOLOGY - GENERAL ORD ERABLES Final Result Performing Organization Address [facility] [address]/ZIP Co de Phone Number [facility] [address] [place] [phone] * Urine Culture Routine (05/02/2024 12:00 AM EST) Urine Urine specimen obtained by clean catch procedure / Unknown 05/02/2024 05/02/2024 Comment:[facility] - 05/04/2024 11:19 AM EST Urine Culture Report Result Urine Culture < 10,000 cfu/ml Specimen Source: Urine clean catch [facility] LAB MICROBIOLOGY - GENERAL ORD ERABLES Final Result Performing Organization Address [facility] [address]/[facility] Co de Phone Number [facility] [address] [place] [phone] * HEPATITIS C AB W/REFL TO HCV RNA, QN, PCR (06/08/2021 11:18 AM EDT) HEPATITIS C ANTIBODY NON-REACT BRONWYN NON-REACT BRONWYN [facility] INDEX 0.01 <1.00 [facility] Comment: ?? HCV antibody was non-reactive. There is no laboratory ?? evidence of HCV infection. ?? In most cases, no further action is required. However, if recent HCV exposure is suspected, a test for HCV RNA (test code 56102) is suggested. ?? For additional information please refer to [email or web address] na Web/faq/FIV30b0 (This link is being provided for informational/ educational purposes only.) ?? 06/08/2021 11:1 8 AM EDT us Rabia Agarwal MD HISTORICAL/NON ORDERABLE LABS Fi nal Result [facility] [address] from Last 3 Months or Most Recently Relevant to Health Maintenance Insurance [facility] C3 DENTAL-[facility] MEDICAID STAND ADULT Care Teams Hr Leader Relationship Specialty Start Date End Date Sophie Borjas NP [address] [place] [address] PCP - General Family Medicine 04/02/24
== END 2024-07-17 07:56 | disposition home or self-care (01) ==
LOC: HO.MAMMO 07:55
PROVIDERS: PCP Internal Medicine Geriatric Medicine; Visit Provider Internal Medicine Geriatric Medicine
DX: N64.4 Mastodynia (principal)
CPT/HCPCS: 76642

== ENCOUNTER → 2024-07-17 07:59 | Outpatient (BNV) | payer MEDICAID, SELFPAY | PROVIDERS: PCP Internal Medicine Geriatric Medicine; Visit Provider Internal Medicine | DX: N64.4 Mastodynia (principal) | CPT/HCPCS: 76642 ==

== ENCOUNTER 2024-08-15 13:03 | Outpatient (REF) | payer MEDICAID, SELFPAY ==
--- OUTSIDE RECORDS SUMMARY | 2024-08-15 13:41 | XMS_ITS | Encounter Summary ---
Author Organization [employer] Address [address] [facility] 7[address] [place] [address] Care Team Providers Care Physics And Astronomy Professor Name Role Phone Sophie Borjas CAITLYN Primary Care Provider [phone] Reason for Visit * Reason Comments Filling Encounter Details Date Type Department Care Team ([facility] st Contact Info) Description 08/10/2024 10:00 AM EDT Office Visit [facility] ADULT D[facility] [address] [place] [address] Janet Hayward DDS [address] [place], [place] [id number] Social History Tobacco Use Types Packs/Day Years [...] AM EDT documented as of this encounter Progress Notes * Janet Hayward DDS - 08/10/2024 10:00 AM EDT Dental procedures in this visit D2391 - RESIN-BASED COMPOSITE - 1 SURF, POSTERIOR 15 O (Completed) Service provider: Janet Hayward DDS Billing provider: Vesta Hair DDS D2391 - RESIN-BASED COMPOSITE - 1 SURF, POSTERIOR 30 B(V) (Completed) Service provider: Janet Hayward DDS Billing provider: Vesta Hair DDS D2391 - RESIN-BASED COMPOSITE - 1 SURF, POSTERIOR 31 B(V) (Completed) Service provider: Janet Hayward DDS Billing provider: Vesta Hair DDS Patient ID: Jennifer Davila is a 29 y.o. female. Time Out: Date: 08/10/2024 Location: [facility] Tooth: #15, #30, and #31 Procedure: Buddhist Verified the above with patient, assistant family teacher, and provider. Confirmed via patient's chart, intraorally and by radiographs. Special Weapons And Tactics Officer: not applicable Composite cheondoism done on # 15, [address] Janet Hayward DDS Risk, benefits, and alternatives discussed with the patient. CONSENT FORM INITIALED & SIGNED BY THE PATIENT AND COUNTERSIGNED BY Dr. Janet Hayward DDS Medical history: Reviewed in EHR Vitals: There were no vitals taken for this visit. Allergies: Reviewed in EHR Medications: Reviewed in EHR - LA: 20% topical benzocaine; local infiltration with 1 1/2 carpule 4% septocaine/articaine 1:100,000 epinephrine - Existing cheondoism and recurrent decay removed - Desensitizer: gluma - Etching done using 37% phosphoric acid. - general agent applied. - Composite cheondoism done using Filtek body/flowable composite, shade a2 - Anatomy and margins adjusted - Proximal contact confirmed with floss. - Occlusion checked with articulating paper - Necessary reductions made. - Buddhist smoothed and polished. - Post op instructions given Patient satisfied, left in stable condition Patient made aware possible post op sensitivity NV: recall Provider: Dr. Janet Hayward DDS Precision Dyer: Marlo Shukla Supervising dentist: Dr. Hair * Vesta Hair DDS - 08/10/2024 10:00 AM EDT I have reviewed the documentation and dental procedures completed by the rendering provider, Janet Hayward DDS, and approve their chart entries for this visit. CHAGO Reed DDS documented in this encounter Plan of Treatment Not on file documented as of this encounter Procedures Procedure Name Priority Date/Time Associated Diagnosis Comments 30 B(V) RESIN-BASED COMPOSITE - 1 SURF, POSTERIOR Routine 08/10/2024 10:00 AM EDT 31 B(V) RESIN-BASED COMPOSITE - 1 SURF, POSTERIOR Routine 08/10/2024 10:00 AM EDT 15 O RESIN-BASED COMPOSITE - 1 SURF, POSTERIOR Routine 08/10/2024 10:00 AM EDT documented in this encounter Visit Diagnoses Not on filedocumented in this encounter Additional Health Concerns Assessment Noted Time PHQ-9 Depression Total Score: 3 01/23/20 24 9:55 AM EDT documented as of this encounter Care Teams Physics And Astronomy Professor Relationship Specialty Start Date End Date Sophie Borjas NP [address] [place] [address] PCP - General Family Medicine 04/02/24 documented as of this encounter
--- OUTSIDE RECORDS SUMMARY | 2024-08-15 13:41 | XMS_ITS | Clinical Summary ---
Author Organization [facility] Address [address] [place] [address] Care Team Providers Care Medical Imaging Specialist Name Role Phone Jonny Musa MD Primary Care Provider [phone] Surgical History Surgery Date Site/Laterality Comments OTHER [...] age to complete this topic Care Teams Medical Imaging Specialist Relationship Specialty Start Date End Date Jonny Musa MD [address] [place] [address] Dr [place] PCP - General Internal Medicine 11/10/18
--- OUTSIDE RECORDS SUMMARY | 2024-08-15 13:41 | XMS_ITS | Encounter Summary ---
Author Organization [employer] Address [address] [facility] 7t [place] [address] Care Team Providers Care Consumer Insights Specialist Name Role Phone Sophie Borjas ELECTRONIC PUBLISHING SPECIALIST Primary Care Provider [phone] Reason for Visit * Reason Comments Gynecologic Exam Encounter Details Date Type Department Care Team (Latest Contact Info) Description 08/15/2024 9:00 AM EDT Procedure Visit [facility] MED[facility]INE [address] [place] [address] Sophie Borjas NP [address] [place] [address] Encounter for Papanicolaou smear for cervical cancer screening (Primary Dx); Dietary counseling; Exercise counseling; Blister of skin Social History Tobacco Use Types Packs/Day Years Used Date Smoking Tobacco: Never Passive Smoke Exposure: Never Smokeless Tobacco: Never Alcohol Use Standard Drinks/Week Comments Never 0 (1 standard drink = 0.6 oz pur e alcohol) Depression Answer Date Recorded Patient Health Questionnaire-9 Score 4 08/15/2024 Patient Health Questionnaire-9 Score 4 08/15/2024 Last PHQ-9: Questionnaire Data Not on file 0 08/15/2024 Housing Stability Answer Date Recorded What is [...] Date Recorded Patient Health Questionnaire-2 Score 0 08/15/2024 Internet Access Answer Date Recorded Internet Access Q1 Yes 01/23/2024 Internet Access Q2 Not on file 01/23/2024 Comments No Intention Date Recorded Ambivalent about becoming (find ing) 08/15/2024 Sex and Gender Information Value Date Recorded Sex Assigned at Female 01/25/2022 10:30 AM EDT Legal Sex Female 10:30 AM EDT Gender Identity Female 01/25/2022 10:30 AM EDT Sexual Orientation Straight 01/25/2022 10 :30 AM EDT documented as of this encounter Last Filed Vital Signs Vital Sign Reading Time Taken Comments Blood Pressure 116/64 08/15/2024 9:07 AM EDT Pulse 87 08/15/2024 9:07 AM EDT Temperature 36.9 ??C (98.5 ??F) 08/15/2024 9:07 AM ED T Respiratory Rate 20 08/15/2024 9:07 AM EDT Oxygen Saturation 99% 08/15/2024 9:07 AM EDT Inhaled Oxygen Concentration - - Weight 93.2 kg (205 lb 6.4 oz) 08/15/2024 9:07 A M EDT Height 162.6 cm (5' 4 ) 08/15/2024 9:07 AM EDT Body Mass Index 35.26 08/15/2024 9:07 AM EDT documented in this encounter Functional Status * Over the past 2 weeks, how often have you been bothered by any of the following problems? Question Answer Date of Assessment Author Patient Health Questionnaire -2 Score 0 08/15/2024 9:50 AM EDT Gurmeet Chinchilla [place] * Little interest or pleasure in doing things Answer Date of Assessment Author Not at all 08/15/2024 9:50 AM EDT Gurmeet Chinchilla MA * Feeling down, depressed, or hopeless Answer Date of Assessment Author Not at all 08/15/2024 9:50 AM EDT Gurmeet Chinchilla MA * Trouble falling or staying asleep, or sleeping too much Answer Date of Assessment Author Not at all 08/15/2024 9:50 AM Gurmeet Mata [place] * Feeling tired or having little energy Answer Date of Assessment Author More than half the days 08/15/2024 9:50 AM CARMELINAT Gurmeet German MA * Poor appetite or overeating Answer Date of Assessment Author Not at all 08/15/2024 9:50 AM EDT Gurmeet Chinchilla MA * Feeling bad about yourself - or that you are a failure or have let yourself or your family down Answer Date of Assessment Author Not at all 08/15/2024 9:50 AM Gurmeet Mata MA * Trouble concentrating on things, such as reading the newspaper or watching television Answer Date of Assessment Author More than half the days 08/15/2024 9:50 AM CARMELINAT Gurmeet German MA * Moving or speaking so slowly that other people could have noticed? Or the opposite - being so fidgety or restless that you have been moving around a lot more than usual. Answer Date of Assessment Author Not at all 08/15/2024 9:50 AM Gurmeet Mata MA * Thoughts that you would be better off or hurting yourself in some way Answer Date of Assessment Author Not at all 08/15/2024 9:50 AM Gurmeet Mata MA * Patient Health Questionnaire-9 Score Answer Date of Assessment Author 4 08/15/2024 9:50 AM Gurmeet Mata MA * How difficult have these problems made it for you to do your work, take care of things at home, or get along with other people? Answer Date of Assessment Author Somewhat difficult 08/15/2024 9:50 AM CARMELINAT Gurmeet Mathias MA * Over the last 2 weeks, how often have you been bothered by any of the following problems? Question Answer Date of Assessment Author Feeling nervous, anxious, or on edge 0 08/15/2024 9:50 AM EDT Gurmeet Chinchilla MA Not being able to stop or co ntrol worrying 2 08/15/2024 9:50 AM EDT Gurmeet Chinchilla MA Worrying too much about diff erent things 2 08/15/2024 9:50 AM EDT Gurmeet Chinchilla MA Trouble relaxing 0 08/15/2024 9:50 AM EDT Gurmeet German MA Being so restless that it is hard to sit still 0 08/15/2024 9:50 AM EDT Gurmeet Chinchilla MA Becoming easily annoyed or irritable 0 08/15/2024 9:50 AM EDT Gurmeet Chinchilla MA Feeling afraid as if somethi ng awful might happen 0 08/15/2024 9:50 AM EDT Gurmeet Chinchilla MA KYLER-7 Total Score 4 08/15/2024 9:50 AM EDT Gurmeet Chinchilla MA documented as of this encounter Progress Notes * Sophie Borjas NP - 08/15/2024 9:00 AM EDT Subjective: Jennifer Davila 29 y.o. female presents for cervical cancer screening Denies recent illness, injury, or hospitalization. HPI Pap history: this is her initial pap test control method: no contraceptive methods at this time and she is not interested in its use atthis time Sexual activity: has male partner, feels safe and is happy Menstrual history: LMP 07/19 lasts 4 days moderate bleeding; regular history: G0 Not due for routine mammogram screening, however she underwent bilateral breast US 07/17/24 which did not reveal any abnormalities to account for her complaint of breast/nipple pain. DEXA: no personal or family history of bone unprovoked fractures TABULAR TYPIST concerns: notes breast pain for which she was seen in may has resolved and is only present with menses onset. Continues to have slight burning with sexual intercourse but that continues to improve with each sexual encounter. Current Concerns: Has little fluid flilled bumps on her finger tabs that come and go. No correlation to weather changes. States they are painless, only burning when its drains. Has had this before in [place] and was told it was water eczema . Was rx'ed a cream which she has since discarded as due to it being old . None present at the time of the visit. Review of Systems Genitourinary: Negative for difficulty urinating, dyspareunia, dysuria, menstrual problem, pelvic pain, vaginal bleeding, vaginal discharge and vaginal pain. Skin: Fluid filled blisters on fingers Objective: Visit Vitals BP 116/64 (BP Location: Left arm, Patient Position: Sitting, BP Cuff Size: Large adult) Pulse 87 Temp 98.5 ??F (36.9 ??C) (Oral) Resp 20 Problem List[1] Medications Ordered Prior to Encounter[2] Physical Exam Vitals reviewed. Constitutional: General: She is not in acute distress. Appearance: Normal appearance. She is not ill-appearing. HENT: Head: Normocephalic and atraumatic. Right Ear: External ear normal. Left Ear: External ear normal. Nose: Nose normal. Eyes: General: No scleral icterus. Extraocular Movements: Extraocular movements intact. Pulmonary: Effort: Pulmonary effort is normal. No respiratory distress. Chest: Breasts: Right: Normal. No swelling, bleeding, inverted nipple, mass, nipple discharge, skin change or tenderness. Left: Normal. No swelling, bleeding, inverted nipple, mass, nipple discharge, skin change or tenderness. Genitourinary: General: Normal vulva. Labia: Right: No rash, tenderness, lesion or injury. Left: No rash, tenderness, lesion or injury. Vagina: Normal. No signs of injury and foreign body. No vaginal discharge, erythema or prolapsed vaginal saeed. Cervix: Normal. No cervical motion tenderness, discharge, erythema or cervical bleeding. Uterus: Normal. Not enlarged and not tender. Adnexa: Right adnexa normal and left adnexa normal. Right: No mass, tenderness or fullness. Left: No mass, tenderness or fullness. Rectum: Normal. Comments: Normal muscle tone with Kegels. No prolapse with valsalva Musculoskeletal: General: Normal range of motion. Cervical back: Normal range of motion. Lymphadenopathy: Upper Body: Right upper body: No supraclavicular or axillary adenopathy. Left upper body: No supraclavicular or axillary adenopathy. Skin: General: Skin is warm and dry. Neurological: General: No focal deficit present. Mental Status: She is alert and oriented to person, place, and time. Gait: Gait normal. Psychiatric: Mood and Affect: Mood normal. Behavior: Behavior normal. Problem List Items Addressed This Visit None Visit Diagnoses Encounter for Papanicolaou smear for cervical cancer screening - Primary -pap completed today -repeat 3 years if normal. call/message with results -enaged in shared decision making regarding HPV vaccine. she will think about it Relevant Orders Pap Smear Dietary counseling Exercise counseling Blister of skin -not present at time of exam -advised monitoring and obtain picture with next occurance -july trial OTC topical hydrocortisone Follow-up 6 months routine health or sooner as needed [1] Patient Active Problem List Diagnosis Cobalamin deficiency Gastroesophageal reflux disease without esophagitis Vitamin D deficiency Seasonal allergies Acne PCOS (polycystic ovarian syndrome) [2] Current Outpatient Medications on File Prior to Visit Medication Sig Dispense Refill cholecalciferol (Vitamin D-3) 10 MCG (400 UNIT) tablet TAKE 2 TABLETS BY MOUTH EVERY DAY 180 tablet1 FT Acid Program Director Scouting 10 MG tablet TAKE 1 TABLET BY MOUTH TWICE DAILY 180 tablet 0 metFORMIN (Glucophage) 500 MG tablet Take by mouth. [DISCONTINUED] cyanocobalamin (Vitamin B-12) 1000 MCG/ML injection INJECT ONE ML INTRAMUSCULARLY EVERY MONTH [DISCONTINUED] ergocalciferol (Vitamin D2) 1.25 MG (38499 UT) capsule TAKE ONE CAPSULE ONCE PER WEEK 15 capsule 0 [DISCONTINUED] pantoprazole (ProtoNix) 20 MG EC tablet TAKE ONE TABLET EVERY MORNING 30 tablet 3 No current facility-administered medications on file prior to visit. documented in this encounter Plan of Treatment Scheduled Orders Name Type Priority Associated Diagnoses Orde r Schedule Pap Smear Pathology and Cytology Routine Encounter for Papanicolaou smear for cervical cancer screening Ordered: 08/15/2024 documented as of this encounter Visit Diagnoses Diagnosis Encounter for Papanicolaou smear for cervical cancer screening- Primary Dietary counseling Dietary surveillance and counseling Exercise counseling Blister of skin documented in this encounter Additional Health Concerns Assessment Noted Time PHQ-9 Depression Total Score: 4 08/16/19 25 9:50 AM EDT documented as of this encounter Care Teams Consumer Insights Specialist Relationship Specialty Start Date End Date Sophie Borjas NP [address] [place] [address] PCP - General Family Medicine 04/02/24 documented as of this encounter
--- OUTSIDE RECORDS SUMMARY | 2024-08-15 13:41 | XMS_ITS | Encounter Summary ---
Author Organization [employer] Address [address] [facility] [address] [place] [address] Care Team Providers Care Lead Former Name Role Phone Sophie Borjas CAITLYN Primary Care Provider [phone] Encounter Details Date Type Department Care Team (Latest Contact Info) Description 08/15/2024 Travel Social History Tobacco Use Types Packs/Day Years [...] AM EDT documented as of this encounter Functional Status * Over the [...] AM EDT Gurmeet Chinchilla MA * Feeling tired or having little energy Answer Date of Assessment Author More than half the days 08/15/2024 9:50 AM EDT Gurmeet German MA * Poor appetite or overeating Answer Date of Assessment Author Not at all 08/15/2024 9:50 AM EDT Gurmeet Chinchilla MA * Feeling bad about yourself - or that you are a failure or have let yourself or your family down Answer Date of Assessment Author Not at all 08/15/2024 9:50 AM EDT Gurmeet Chinchilla MA * Trouble concentrating on things, such as reading the newspaper or watching television Answer Date of Assessment Author More than half the days 08/15/2024 9:50 AM EDT Gurmeet German MA * Moving or speaking so slowly that other people could have noticed? Or the opposite - being so fidgety or restless that you have been moving around a lot more than usual. Answer Date of Assessment Author Not at all 08/15/2024 9:50 AM EDT Gurmeet Chinchilla MA * Thoughts that you would be better off or hurting yourself in some way Answer Date of Assessment Author Not at all 08/15/2024 9:50 AM CARMELINAT Gurmeet Chinchilla MA * Patient Health Questionnaire-9 Score Answer Date of Assessment Author 4 08/15/2024 9:50 AM EDT Gurmeet Chinchilla MA * How difficult have these problems made it for you to do your work, take care of things at home, or get along with other people? Answer Date of Assessment Author Somewhat difficult 08/15/2024 9:50 AM EDT Gurmeet Mathias MA * Over the last 2 weeks, how often have you been bothered by any of the following problems? Question Answer Date of Assessment Author Feeling nervous, anxious, or on edge 0 08/15/2024 9:50 AM EDT Gurmeet Chinchilla MA Not being able to stop or co ntrol worrying 2 08/15/2024 9:50 AM CARMELINAT Gurmeet Chinchilla MA Worrying too much about diff erent things 2 08/15/2024 9:50 AM CARMELINAT Gurmeet Chinchilla MA Trouble relaxing 0 08/15/2024 9:50 AM EDT Gurmeet German MA Being so restless that it is hard to sit still 0 08/15/2024 9:50 AM CARMELINAT Gurmeet Chinchilla MA Becoming easily annoyed or irritable 0 08/15/2024 9:50 AM EDT Gurmeet Chinchilla MA Feeling afraid as if somethi ng awful might happen 0 08/15/2024 9:50 AM CARMELINAT Gurmeet Chinchilla MA KLYER-7 Total Score 4 08/15/2024 9:50 AM CARMELINAT Gurmeet Chinchilla MA documented as of this encounter Plan of Treatment Not on file documented as of this encounter Visit Diagnoses Not on filedocumented in this encounter Additional Health Concerns Assessment Noted Time PHQ-9 Depression Total Score: 4 08/16/19 9:50 AM EDT documented as of this encounter Care Teams Lead Former Relationship Specialty Start Date End Date Sophie Borjas NP [address] [place] [address] PCP - General Family Medicine 04/02/24 documented as of this encounter
--- OUTSIDE RECORDS SUMMARY | 2024-08-15 13:41 | XMS_ITS | Encounter Summary ---
Author Organization [employer] Address [address] [facility] [address] [place] [address] Care Team Providers Care Commodity Loan Clerk Name Role Phone Rabia Agarwal MD Primary Care Provider Sophie Borjas NP Primary Care Provider [phone] Reason for Visit * Reason Onset Date Comments Appointment 05/28/2022 Jennifer Davila 1995 Patient called in and stated that a antibiotic was supposed to be sent over to the [facility] pharmacy and patient stated that nothing has be sent over yet patient was seen today 05/28 please advise . Encounter Details Date Type Department Care Team (Late st Contact Info) Description 05/28/2022 Telephone [facility] ADULT DENTAL [address] [place] [address] Ramiro Phoenix DDS [address] [place] [address] Appointment (Jennifer Davila 1995 Patient called in and stated that a antibiotic was supposed to be sent over to the [facility] pharmacy and patient stated that nothing has [...] In the last 10 days, have [employer] been in contact with someone who was confirmed or suspected to have Coronavirus/COVID-19? No / Unsure 05/28/2022 11:23 AM EST documented as of this encounter Miscellaneous Notes * Telephone Encounter - Radha Ryan - 05/28/2022 3:09 PM EST Jennifer NEWTON 1995 Patient called in and stated that a antibiotic was supposed to be sent over to the [facility] pharmacy and patient stated that nothing has [...] documented as of this encounter Care Teams Commodity Loan Clerk Relationship Specialty Start Date End Date Rabia Agarwal MD [address] [place] [address] PCP - General Family Medicine 08/27/19 04/01/24 Sophie Borjas NP [address] [place] [address] PCP - General Family Medicine 04/02/24 documented as of this encounter
--- OUTSIDE RECORDS SUMMARY | 2024-08-15 13:41 | XMS_ITS | Encounter Summary ---
Author Organization [employer] Address [address] [facility] [address] [place] [address] Care Team Providers Care Unix Developer Name Role Phone Sophie Borjas DANCE ENTERTAINER Primary Care Provider [phone] Reason for Visit * Reason Onset Date Comments CHART PREP 08/14/2024 Encounter Details Date Type Department Care Team ([facility] st Contact Info) Description 08/14/2024 Telephone [facility] MED[facility] [address] [place], [place] [phone] Sophie Borjas NP [address] [place] [address] CHART PREP Social History Tobacco Use Types Packs/Day Years [...] encounter Miscellaneous Notes * Telephone Encounter - Citlali Oropeza MA - 08/14/2024 1:23 PM EDT Chart Prep Labs: not applicable Images: done mammo 07/17/24 Referrals: not applicable Vaccines due: Covid and HPV Screenings: pap smear and LMP Overdue care gaps: SBIRT, SDOH, PHQ-9, KYLER-7, Oral health screening, and Disability screen documented in this encounter Plan of Treatment Not on file documented as of this encounter Visit Diagnoses Not on filedocumented in this encounter Additional Health Concerns Assessment Noted Time PHQ-9 Depression Total Score: 3 01/23/20 9:55 AM EDT documented as of this encounter Care Teams Unix Developer Relationship Specialty Start Date End Date Sophie Borjas NP [address] [place] [address] PCP - General Family Medicine 04/02/24 documented as of this encounter
--- OUTSIDE RECORDS SUMMARY | 2024-08-15 13:41 | XMS_ITS | Encounter Summary ---
Author Organization [employer] Address [address] [facility] [address] [place] [address] Care Team Providers Care Pool Nurse Name Role Phone Rabia Agarwal MD Primary Care Provider [phone] Sophie Borjas NP Primary Care Provider [phone] Encounter Details Date Type Department Care Team (Latest Contact Info) Description 01/29/2021 Abstract [facility] CONVERSIONS Dental, Provider, DDS Social History [...] on filedocumented in this encounter Care Teams Pool Nurse Relationship Specialty Start Date End Date Rabia Agarwal MD [address] [place] [address] PCP - General Family Medicine 08/27/19 04/01/24 Sophie Borjas NP [address] [place] [address] PCP - General Family Medicine 04/02/24 documented as of this encounter
--- OUTSIDE RECORDS SUMMARY | 2024-08-15 13:41 | XMS_ITS | Clinical Summary ---
Author Organization [employer] Address [address] [place] [address] Care Team Providers Care Barn Hand Name Role Phone Sophie Borjas ENGINEERING AIDE Primary Care Provider [phone] Allergies Active Allergy Reactions Criticality Noted Date Comments Ibuprofen Other,Vomiting Low 01/23/2024 Stomach pain Medications metFORMIN (Glucophage) 500 MG tablet Take by mouth. A ctive FT Acid Morning Show Host 10 MG tablet TAKE 1 TABLET BY MOUTH TWICE DAILY 180 tablet 025 Active cholecalcifero l (Vitamin D-3) 10 MCG (400 UNIT) tabletIndicati ons:Hypovitami nosis D TAKE 2 TABLETS BY MOUTH EVERY DAY 180 tablet 1 025 Active cyanocobalamin (Vitamin B-12) 1000 MCG/ML injection INJECT ONE ML INTRAMUSCULARLY EVERY MONTH 022 2024 Discontinued(M ed list cleanup (will not trigger notification to Pharmacy)) ergocalciferol (Vitamin D2) 1.25 MG (74958 UT) capsule TAKE ONE CAPSULE ONCE PER WEEK 15 capsule 023 2024 Discontinued(M ed list cleanup (will not trigger notification to Pharmacy)) pantoprazole (ProtoNix) 20 MG EC tabletIndicati ons:GERD without esophagitis TAKE ONE TABLET EVERY MORNING 30 tablet 3 024 2024 Discontinued(M ed list cleanup (will not trigger notification to Pharmacy)) cholecalcifero l (Vitamin D-3) 10 MCG (400 UNIT) tabletIndicati ons:Hypovitami nosis D TAKE 2 TABLETS BY MOUTH EVERY DAY 60 tablet 2 025 2024 Discontinued Active Problems Problem Noted [...] Encounters Date Type Department Care Team Description 08/15/2024 9:00 AM EDT Procedure Visit [facility] [address] [place] [address] Sophie Borjas NP Encounter for Papanicolaou smear for cervical cancer screening (Primary Dx); Dietary counseling; Exercise counseling; Blister of skin 08/15/2024 Travel 08/14/2024 Telephone [facility] [address] [place] [address] Sophie Borjas NP CHART PREP 08/10/2024 10:00 AM EDT Office Visit [facility] [address] [place] [address] Janet Hayward DDS 08/07/2024 Refill [facility] [address] [place] [address] Sophie Borjas NP Hypovitaminosis D 07/09/2024 Telephone [facility] [address] [place] [address] Sophie Borjas NP 07/09/2024 Telephone [facility] [address] [place] [address] Sophie Borjas NP chart prep 06/22/2024 Telephone [facility] [address] [place] [address] Ingris Mcmullen [facility] 06/12/2024 9:00 AM EDT Office Visit [facility] [address] [place], [place] [id number] Name, MD Propser Pain of both breasts (Primary Dx) 06/12/2024 Travel 06/08/2024 Population Health Risk [facility] Department [address] [place] [address] [phone] Provider, Population Health Generic 05/22/2024 1:00 PM EST Office Visit [facility] [address] [place] [address] Gilles Pitts Dental calculus (Primary Dx) from Last 3 Months Immunizations Immunization Administration Dates Next Due HPV 9-Valent 08/30/2018,04/22/2016 [...] the past 12 months, has t he [employer], gas, oil or water company threatened to [...] Mass Index 35.26 08/15/2024 9:07 AM EDT Plan of Treatment Health Maintenance Due Date Last Done Comments Dental X-Ray: Full Mouth 1997 HIV Screening 1995 Pap Smear 2018 HPV Vaccines (3 - 3-dose series) 11/22/2018 08/30/2018, 04/22/2016 Dental Oral Exam 12/13/2022 06/11/2022 COVID-19 Vaccine (4 - 2023-2 5 season) 2023 04/19/2021, 08/21/2020, 07/31/2020 Influenza Vaccine (#1) 2023 , 03/18/2017 Dental X-Ray: Bitewings 11/17/2024 11/17/19 24, 10/21/2022, 06/11/2022 Dental Prophylaxis 11/20/2024 05/22/2024, 11/17/2023, 06/11/2022 Alcohol/Substance Use Screening 08/15/2025 08/15/2024 Depression Screening 08/15/2025 08/15/2024, 08/15/2024 Disability Screening 08/15/2025 08/15/2024 Family Planning (PISQ) 08/15/2025 08/15/2024 SDOH Screening 08/15/2025 08/15/2024 Tobacco Screening 08/15/2025 08/15/2024 DTaP/Tdap/Td Vaccines (2 - T d or [...] patient's age to complete this topic Hepatitis B Vaccines Discontinued IPV Vaccines Aged Out No longer eligi ble based on patient's age to complete this topic Meningococcal B Vaccine Aged Out No l onger eligible based on patient's age to complete this topic Pneumococcal Vaccine: Pediatrics (0 to 5 Years) and At-Risk Patients (6 to 49) Years) Aged Out No longer eligible based on [...] SURF, POSTERIOR Routine 08/10/2024 10:00 AM EDT BI US BREAST LIMITED BILATERAL Routine 07/17/2024 7:59 AM EDT POCT , URINE Routine 06/12/2024 9:31 AM EDT Pain of both breasts CASE PRESENTATION, DETAILED AND EXTENSIVE TREATMENT PLANNING Routine 05/22/2024 1:00 PM EST ORAL HYGIENE INSTRUCTIONS Routine 05/22/2024 1:00 PM EST Full PROPHYLAXIS - ADULT Routine 05/22/2024 1:00 PM EST BITEWINGS - 4 RADIOGRAPHIC IMAGES Routine 11/17/2023 10:00 AM EDT PERIODIC ORAL EVALUATION - ESTABLISHED PATIENT Routine 06/11/2022 9:00 AM EDT ZZZ HISTORICAL HEPATITIS C AB W/REFL TO HCV RNA, QN, PCR Routine 06/08/2021 11:18 AM EDT from Last 3 Months or Most Recently Relevant to Health Maintenance Results * BI US Breast Limited Bilateral (07/17/2024 7:59 AM EDT) Anatomical Region Laterality Modality Breast Bilateral Ultrasound 07/17/2024 7:59 AM EDT Narrative 07/17/2024 8:56 AM EDT ? [facility] ? [address] ?[place] [address] ? Ultrasound Report ? Signed ? Patient: Kuruca,Tugce ?MR#: [id number] ? : 1995 ?Acct:[id number] ? Age/Sex: 29 / F ?ADM Date: 04/22/25 ? Loc: HO.MAMMO ? Attending Dr: Prosper Martinez MD ? Ordering Physician: Prosper Martinez MD ?? Date of Service: 07/17/24 ?? Procedure(s): US breast BI limited mamm only ?? Accession Number(s): [id number] ? cc: Prosper Martinez MD ? EXAMINATION: ?? US DIAGNOSTIC ULTRASOUND BREAST, BILATERAL ? CLINICAL INFORMATION: ? 29-year-old female with bilateral lower breast and nipple pain for 2 ?? months, no injury. Patient states she does not currently have the pain. ? COMPARISON: ?? Comparison is made with relevant prior imaging. ? TECHNIQUE: ?? Ultrasound of the breast is performed with real-time rousseau scale imaging ?? and color Doppler. ? FINDINGS: Targeted color Doppler ultrasound scanning from 3-9 o'clock ?? bilateral breasts and retroareolar demonstrates normal fibroglandular ?? breast tissue. ?? There is no focal suspicious finding. ? Results are discussed with the patient at time of visit. ? US/US breast BI limited mamm only ?? IMPRESSION: ?? No sonographic abnormality to account for the patient's breast and ?? nipple pain. Recommend clinical evaluation and follow-up. ? ASSESSMENT: ? BI-RADS 1: Negative ? RECOMMENDATION: ?? 1. Patient should be managed based on the clinical impression. ? Decision to proceed with biopsy should be based on clinical grounds and ?? degree of clinical concern. ? 2. Otherwise, routine annual screening mammography age 40. ? Electronically signed by: ??Lety Gross DO ??07/17/2024 08:53 AM EDT ? Dictated By: ?Lety Gross DO ? Signed By: ?<Electronically signed by Lety Tyminski, DO in OV> ? 07/17/24 0853 ? DD/ 0759 ? TD/TT: 07/17/24 0836 ? Climatology Professor: ? Procedure Note Daren, Krishna - 07/17/2024 [facility] [address] [place] [address] [place] [address] Ultrasound Report Signed Patient: Jennifer Davila#: [id number] : 1995Acct:[id number] Age/Sex: 29 / FADM Date: 07/17/24 Loc: HO.MAMMO Attending Dr: Prosper Martinez MD Ordering Physician: Prosper Martinez MD Date of Service: 07/17/24 Procedure(s): US breast BI limited mamm only Accession Number(s): [id number] cc: Prosper Martinez MD EXAMINATION: US DIAGNOSTIC ULTRASOUND BREAST, BILATERAL CLINICAL INFORMATION: 29-year-old female with bilateral lower breast and nipple pain for 2 months, no injury. Patient states she does not currently have the pain. COMPARISON: Comparison is made with relevant prior imaging. TECHNIQUE: Ultrasound of the breast is performed with real-time rousseau scale imaging and color Doppler. FINDINGS: Targeted color Doppler ultrasound scanning from 3-9 o'clock bilateral breasts and retroareolar demonstrates normal fibroglandular breast tissue. There is no focal suspicious finding. Results are discussed with the patient at time of visit. US/US breast BI limited mamm only IMPRESSION: No sonographic abnormality to account for the patient's breast and nipple pain. Recommend clinical evaluation and follow-up. ASSESSMENT: BI-RADS 1: Negative RECOMMENDATION: 1. Patient should be managed based on the clinical impression. Decision to proceed with biopsy should be based on clinical grounds and degree of clinical concern. 2. Otherwise, routine annual screening mammography age 40. Electronically signed by: Lety Gross DO 07/17/2024 08:53 AM EDT Dictated By: Lety Gross DO Signed By: <Electronically signed by Lety Gross DO in OV> 07/17/24 0853 DD/ 0759 TD/TT: 07/17/24 0836 Climatology Professor: us Prosper Martinez MD IMG US PROCEDURES Final Result * POCT , urine manually resulted (06/12/2024 9:31 AM EDT) Preg Test, Ur Negative Negative, Indeterminate, None Detected, Invalid, Specimen unsatisfactory for evaluation, Weakly Positive Urine 06/12/2024 9:31 AM EDT us Prosper Martinez MD POINT OF CARE TEST ENTER/EDIT OR DERABLES Final Result * HEPATITIS C AB W/REFL TO HCV RNA, QN, PCR (06/08/2021 11:18 AM EDT) HEPATITIS C ANTIBODY NON-REACT [facility] NON-REACT [facility] INDEX 0.01 <1.00 [facility] Comment: ?? HCV antibody was non-reactive. There is no laboratory ?? evidence of HCV infection. ?? In most cases, no further action is required. However, if recent HCV exposure is suspected, a test for HCV RNA (test code 27450) is suggested. ?? For additional information please refer to [email or web address].[employer]/faq/[email or web address] (This link is being provided for informational/ educational purposes only.) ?? 06/08/2021 11:1 8 AM EDT us Rabia Agarwal MD HISTORICAL/NON ORDERABLE LABS Fi nal Result [facility] [address] from Last 3 Months or Most Recently Relevant to Health Maintenance Insurance [facility] C3 D[facility] MEDICAID STAND ADULT Care Teams Barn Hand Relationship Specialty Start Date End Date Sophie Borjas NP [address] [place] [phone] PCP - General Family Medicine 04/02/24
== END 2024-08-15 13:04 | disposition home or self-care (01) ==
LOC: HO.HHCLNP 13:03
PROVIDERS: Visit Provider Nurse Practitioner
DX: Z12.4 Encounter for screening for malignant neoplasm of cervix (principal)
CPT/HCPCS: 87626; 88175